=== PATIENT | female | born 1940 | race African-American/Black ===

== ENCOUNTER 2019-02-08 10:22 | Inpatient (IN) | payer MEDICARE, BC ==
[~2019-02-08] VITALS: Ht 172.7 cm; Wt 57.2 kg
[2019-02-08 10:47] LABS: BASOPHILS % 0.7 % (0.0-2.0); EOSINOPHILS % 0.4 % (0.0-5.0); HEMATOCRIT. 39.8 % (36.0-48.0); HEMOGLOBIN. 13.2 g/dL (12.0-16.0); LYMPHOCYTES % 15.9 % (20.0-50.0); MEAN CORPUSCULAR VOLUME 93.4 fL (81.0-99.0); MONOCYTES % 6.6 % (2.0-8.0); NEUTROPHILS % 76.4 % (40.0-76.0); PLATELET 152 x1000/uL (130-400); RED BLOOD CELL COUNT 4.26 mill/uL (4.2-5.4); RED CELL DISTRIBUTION WIDTH 14.2 % (11.6-14.6)
[2019-02-08 10:52] LABS: INR 1.1; PROTHROMBIN TIME 11.3 sec (9.6-11.0)
[2019-02-08 10:54] LABS: CHLORIDE 106 mEq/L (98-107)
[2019-02-08 10:57] LABS: ETHANOL BLOOD < 10 mg/dL
[2019-02-08 11:46] LABS: CLARITY URINE CLEAR (CLEAR); COLOR URINE YELLOW (YELLOW); KETONES URINE NEGATIVE (NEGATIVE); LEUKOCYTE ESTERASE URINE NEGATIVE (NEGATIVE); NITRITE URINE POSITIVE (NEGATIVE); OCCULT BLOOD URINE TRACE (NEGATIVE); PROTEIN URINE NEGATIVE (NEGATIVE); SPECIFIC GRAVITY URINE 1.021 (1.005-1.030)
[2019-02-08] MEDS ORDERED: LEVOFLOXACIN 750MG PREMIX 150 ML IV ONE (12:15)
[2019-02-08 12:56] LABS: *AMPHETAMINES SCREEN URINE NEGATIVE (NEGATIVE); *BARBITURATES SCREEN URINE NEGATIVE (NEGATIVE); *COCAINE SCREEN URINE NEGATIVE (NEGATIVE)
[2019-02-08 12:57] LABS: *BENZODIAZEPINES SCREEN URINE NEGATIVE (NEGATIVE); CANNABINOID URINE SCREEN NEGATIVE (NEGATIVE); METHADONE URINE SCREEN NEGATIVE (NEGATIVE); OPIATES URINE SCREEN NEGATIVE (NEGATIVE); PHENCYCLIDINE URINE SCREEN NEGATIVE (NEGATIVE)
[2019-02-08] MEDS ORDERED: HALOPERIDOL LACTATE 5MG/ML VIAL IM ONE (13:45)
[2019-02-08] MEDS ORDERED: ONDANSETRON HCL 4MG/2ML INJ IV PRN (15:00)
[2019-02-08] MEDS: RISPERIDONE 0.5MG TABLET PO SCH (15:00)
[2019-02-08] MEDS ORDERED: ACETAMINOPHEN 325MG TABLET PO PRN (15:00)
[2019-02-08] MEDS ORDERED: CEFTRIAXONE 1 G PREMIX 50 ML IV SCH (15:00)
[2019-02-08] MEDS: LORAZEPAM 2MG/ML CPJ IM PRN (17:23)
[2019-02-08 20:00] VITALS: BP 156/62
[2019-02-08 22:00] VITALS: BP 156/62
[2019-02-08] MEDS: CEFTRIAXONE 1 G PREMIX 50 ML IV SCH (22:12)
[2019-02-08] MEDS: SODIUM CHLORIDE 0.9% 1,000 ML IV SCH (22:45)
[2019-02-08] MEDS ORDERED: NITR0.4T49 SL (23:41)
[2019-02-08] MEDS ORDERED: AMLO5TAB4 PO (23:41)
[2019-02-08] MEDS ORDERED: LEVO25TA2 PO (23:41)
[2019-02-08] MEDS ORDERED: ASPI-986 PO (23:41)
[2019-02-08] MEDS ORDERED: CLOP75TA4 PO (23:41)
[2019-02-09 00:16] VITALS: BP 148/66
[2019-02-09 04:00] VITALS: BP 146/63
[2019-02-09 06:58] LABS: BASOPHILS % 0.4 % (0.0-2.0); EOSINOPHILS % 0.6 % (0.0-5.0); HEMATOCRIT. 37.7 % (36.0-48.0); HEMOGLOBIN. 12.5 g/dL (12.0-16.0); LYMPHOCYTES % 19.3 % (20.0-50.0); MEAN CORPUSCULAR VOLUME 93.2 fL (81.0-99.0); MEAN PLATELET VOLUME 9.8 fl (7.4-10.4); NEUTROPHILS % 71.7 % (40.0-76.0); PLATELET 135 x1000/uL (130-400); RED BLOOD CELL COUNT 4.05 mill/uL (4.2-5.4); RED CELL DISTRIBUTION WIDTH 13.8 % (11.6-14.6)
[2019-02-09 07:16] LABS: CHLORIDE 105 mEq/L (98-107)
[2019-02-09 08:00] VITALS: BP 157/67
[2019-02-09] MEDS: RISPERIDONE 0.5MG TABLET PO SCH ×2 (08:02→17:09)
[2019-02-09 12:00] VITALS: BP 143/58
[2019-02-09] MEDS: HALOPERIDOL LACTATE 5MG/ML VIAL IM PRN (14:16)
[2019-02-09 16:00] VITALS: BP 144/67
[2019-02-09] MEDS: SODIUM CHLORIDE 0.9% 1,000 ML IV SCH (18:45)
[2019-02-09 20:44] VITALS: BP 137/61
[2019-02-09] MEDS: CEFTRIAXONE 1 G PREMIX 50 ML IV SCH (21:34)
[2019-02-09] MEDS ORDERED: METO-396 PO (21:46)
[2019-02-10 00:05] VITALS: BP 121/64
[2019-02-10 04:00] VITALS: BP 118/64
[2019-02-10 08:00] VITALS: BP 168/66
[2019-02-10] MEDS ORDERED: PNEUMOCOCCAL 23-VAL P-SAC VAC 0.5 ML IM ONE (09:00)
[2019-02-10] MEDS: RISPERIDONE 0.5MG TABLET PO SCH ×2 (09:18→17:00)
[2019-02-10 12:00] VITALS: BP 131/53
[2019-02-10] MEDS: HALOPERIDOL LACTATE 5MG/ML VIAL IM PRN (14:52)
[2019-02-10 16:00] VITALS: BP 151/70
[2019-02-10] MEDS: LORAZEPAM 2MG/ML CPJ IM PRN (16:05)
[2019-02-10 20:00] VITALS: BP 166/70
[2019-02-10] MEDS: CEFTRIAXONE 1 G PREMIX 50 ML IV SCH (21:36)
[2019-02-11] VITALS: BP 162/65
[2019-02-11 04:00] VITALS: BP 155/67
[2019-02-11 08:29] VITALS: BP 150/66
[2019-02-11] MEDS: RISPERIDONE 0.5MG TABLET PO SCH ×2 (08:40→17:44)
[2019-02-11] MEDS: HALOPERIDOL LACTATE 5MG/ML VIAL IM PRN ×2 (12:17→20:04)
[2019-02-11 12:27] VITALS: BP 120/71
[2019-02-11 16:20] VITALS: BP 154/71
[2019-02-11] MEDS: CEFTRIAXONE 1 G PREMIX 50 ML IV SCH (20:05)
[2019-02-11 20:50] VITALS: BP 116/65
[2019-02-12 04:00] VITALS: BP 145/56
[2019-02-12] MEDS: HALOPERIDOL LACTATE 5MG/ML VIAL IM PRN (07:00)
[2019-02-12 08:45] VITALS: BP 179/68
[2019-02-12] MEDS: RISPERIDONE 0.5MG TABLET PO SCH ×2 (09:24→17:33)
[2019-02-12] MEDS: CLONIDINE 0.1MG TABLET PO PRN (09:24)
[2019-02-12 16:18] VITALS: BP 127/65
[2019-02-12 17:01] LABS: BASOPHILS % 0.5 % (0.0-2.0); HEMATOCRIT. 38.1 % (36.0-48.0); HEMOGLOBIN. 12.6 g/dL (12.0-16.0); LYMPHOCYTES % 17.9 % (20.0-50.0); MEAN CORPUSCULAR HEMOGLOBIN 31.2 pg (28.0-32.0); MEAN CORPUSCULAR VOLUME 94.5 fL (81.0-99.0); MEAN PLATELET VOLUME 9.8 fl (7.4-10.4); MONOCYTES % 9.4 % (2.0-8.0); NEUTROPHILS % 71.2 % (40.0-76.0); PLATELET 130 x1000/uL (130-400); RED BLOOD CELL COUNT 4.03 mill/uL (4.2-5.4)
[2019-02-12 17:23] LABS: CHLORIDE 105 mEq/L (98-107)
[2019-02-12 20:00] VITALS: BP 116/55
[2019-02-12] MEDS: CEFTRIAXONE 1 G PREMIX 50 ML IV SCH (20:04)
[2019-02-12] MEDS: LORAZEPAM 2MG/ML CPJ IV PRN (21:08)
[2019-02-13] VITALS: BP 136/68
[2019-02-13 04:00] VITALS: BP 145/65
[2019-02-13 08:00] VITALS: BP 167/68
[2019-02-13] MEDS: RISPERIDONE 0.5MG TABLET PO SCH ×2 (09:26→17:00)
[2019-02-13] MEDS: CLONIDINE 0.1MG TABLET PO PRN (09:27)
[2019-02-13 12:00] VITALS: BP 127/55
[2019-02-13] MEDS: LORAZEPAM 2MG/ML CPJ IV PRN (14:48)
[2019-02-13 16:00] VITALS: BP 114/50
[2019-02-13 20:50] VITALS: BP 146/49
[2019-02-13] MEDS: CEFTRIAXONE 1 G PREMIX 50 ML IV SCH (21:08)
[2019-02-14 00:44] VITALS: BP 165/69
[2019-02-14 04:44] VITALS: BP 134/80
[2019-02-14 08:00] VITALS: BP 146/70
[2019-02-14 08:20] LABS: CHLORIDE 106 mEq/L (98-107)
[2019-02-14] MEDS: RISPERIDONE 0.5MG TABLET PO SCH ×2 (09:50→16:31)
[2019-02-14 10:45] LABS: BASOPHILS % 0.6 % (0.0-2.0); EOSINOPHILS % 0.4 % (0.0-5.0); HEMATOCRIT. 42.3 % (36.0-48.0); LYMPHOCYTES % 15.9 % (20.0-50.0); MEAN CORPUSCULAR HEMOGLOBIN 31.3 pg (28.0-32.0); MEAN CORPUSCULAR VOLUME 94.7 fL (81.0-99.0); MEAN PLATELET VOLUME 9.9 fl (7.4-10.4); NEUTROPHILS % 77.1 % (40.0-76.0); RED BLOOD CELL COUNT 4.47 mill/uL (4.2-5.4); RED CELL DISTRIBUTION WIDTH 14.3 % (11.6-14.6)
[2019-02-14 11:01] LABS: PLATELET 128 x1000/uL (130-400)
[2019-02-14 12:00] VITALS: BP 134/69
[2019-02-14 16:00] VITALS: BP 129/54
[2019-02-14] MEDS ORDERED: PNEUMOCOCCAL 23-VAL P-SAC VAC 0.5 ML IM ONE (16:00)
[2019-02-14] MEDS ORDERED: INFLUENZA VIRUS VACCINE(AFLURIA) 0.5ML SYR IM ONE (17:45)
[2019-02-14] MEDS: HALOPERIDOL LACTATE 5MG/ML VIAL IM PRN (18:24)
[2019-02-14] MEDS: LORAZEPAM 2MG/ML CPJ IV PRN (19:22)
[2019-02-14 20:00] VITALS: BP 133/62
[2019-02-14] MEDS: CEFTRIAXONE 1 G PREMIX 50 ML IV SCH (20:42)
[2019-02-15] VITALS: BP 141/69
[2019-02-15] MEDS: LORAZEPAM 2MG/ML CPJ IV PRN ×3 (01:48→23:16)
[2019-02-15] MEDS: CLONIDINE 0.1MG TABLET PO PRN ×2 (03:42→11:29)
[2019-02-15 03:56] VITALS: BP 165/76
[2019-02-15 08:00] VITALS: BP 165/66
[2019-02-15] MEDS: RISPERIDONE 0.5MG TABLET PO SCH (08:54)
[2019-02-15 12:00] VITALS: BP 163/58
[2019-02-15 16:00] VITALS: BP 134/56
[2019-02-15] MEDS: RISPERIDONE 1MG TABLET PO SCH (17:07)
[2019-02-15 20:00] VITALS: BP 153/55
[2019-02-15] MEDS: CEFTRIAXONE 1 G PREMIX 50 ML IV SCH (20:52)
[2019-02-16 00:26] VITALS: BP 167/63
[2019-02-16 04:00] VITALS: BP 141/66
[2019-02-16 08:00] VITALS: BP 169/82
[2019-02-16] MEDS: RISPERIDONE 1MG TABLET PO SCH ×2 (08:48→17:26)
[2019-02-16] MEDS: CLONIDINE 0.1MG TABLET PO PRN (08:49)
[2019-02-16] MEDS ORDERED: DOCUSATE SODIUM 250MG CAPSULE PO SCH (10:45)
[2019-02-16 12:32] VITALS: BP 128/68
[2019-02-16 14:47] VITALS: BP 128/68
[2019-02-16 16:00] VITALS: BP 120/75
[2019-02-16] MEDS ORDERED: AMLODIPINE 5MG TABLET PO SCH (21:00)
== END 2019-02-16 17:55 | DRG 689 ==
LOC: ER 11:09 → 6WST 12:58 → ENRESERV 16:34
PROVIDERS: ADMIT Internal Medicine Nephrology; ATTEND Internal Medicine Nephrology
DX: N39.0 Urinary tract infection, site not specified (principal); G93.41 Metabolic encephalopathy; E44.1 Mild protein-calorie malnutrition; Z68.1 Body mass index [BMI] 19.9 or less, adult; F03.90 Unspecified dementia, unspecified severity, without behavioral disturbance, psychotic disturbance, mood disturbance, and anxiety; I10 Essential (primary) hypertension; I25.10 Atherosclerotic heart disease of native coronary artery without angina pectoris; I48.91 Unspecified atrial fibrillation; N83.8 Other noninflammatory disorders of ovary, fallopian tube and broad ligament; I25.2 Old myocardial infarction; Z88.8 Allergy status to other drugs, medicaments and biological substances; Z79.899 Other long term (current) drug therapy; Z79.82 Long term (current) use of aspirin
CPT/HCPCS: 36415; 71045; 74176; 80048; 80305; 80320; 81003; 83735; 84100; 84484; 86304; 90732; 93005; 93970; 97162; 99285; C1893; J0696; J1630; J1956; J2060; J7030; J7040; G0480

== ENCOUNTER 2019-02-16 23:36 | Emergency (ER) | payer MEDICARE, BC ==
[~2019-02-16] VITALS: Ht 167.6 cm; Wt 50.0 kg
[~2019-02-16 23:36] MED LIST: AMLO5TAB4 PO; ASPI-986 PO; CLOP75TA4 PO; LEVO25TA2 PO; METO-396 PO; NITR0.4T49 SL
[2019-02-17] MEDS ORDERED: TETANUS, DIPHTHERIA, PERTUSSIS VAC/PF 0.5ML (>7YR OLD) IM ONE
[2019-02-17 00:14] LABS: BASOPHILS % 0.3 % (0.0-2.0); EOSINOPHILS % 0.4 % (0.0-5.0); HEMOGLOBIN. 14.3 g/dL (12.0-16.0); LYMPHOCYTES % 17.6 % (20.0-50.0); MEAN CORPUSCULAR VOLUME 93.5 fL (81.0-99.0); MEAN PLATELET VOLUME 9.1 fl (7.4-10.4); MONOCYTES % 8.2 % (2.0-8.0); NEUTROPHILS % 73.5 % (40.0-76.0); PLATELET 141 x1000/uL (130-400)
[2019-02-17 00:20] LABS: CHLORIDE 101 mEq/L (98-107)
[2019-02-17 10:15] VITALS: BP 150/55
== END 2019-02-17 10:15 ==
LOC: ER 23:36
DX: S01.81XA Laceration without foreign body of other part of head, initial encounter (principal); W18.39XA Other fall on same level, initial encounter; Y93.89 Activity, other specified; Y92.89 Other specified places as the place of occurrence of the external cause; Y99.8 Other external cause status; I48.91 Unspecified atrial fibrillation; I10 Essential (primary) hypertension; I25.2 Old myocardial infarction; F03.90 Unspecified dementia, unspecified severity, without behavioral disturbance, psychotic disturbance, mood disturbance, and anxiety; Z79.82 Long term (current) use of aspirin; Z79.899 Other long term (current) drug therapy; Z88.0 Allergy status to penicillin; Z88.6 Allergy status to analgesic agent
CPT/HCPCS: 12011; 36415; 70486; 71045; 72170; 90471; 90715; 99284

== ENCOUNTER 2019-12-20 09:29 | Inpatient (IN) | payer MEDICARE, BC ==
[~2019-12-20] VITALS: Ht 175.3 cm; Wt 58.7 kg
[2019-12-20 11:22] LABS: BASOPHILS % 0.5 % (0.0-2.0); EOSINOPHILS % 0.7 % (0.0-5.0); HEMATOCRIT. 38.6 % (36.0-48.0); HEMOGLOBIN. 12.8 g/dL (12.0-16.0); LYMPHOCYTES % 18.5 % (20.0-50.0); MEAN CORPUSCULAR HEMOGLOBIN 31.1 pg (28.0-32.0); MEAN PLATELET VOLUME 8.7 fl (7.4-10.4); MONOCYTES % 6.6 % (2.0-8.0); NEUTROPHILS % 73.7 % (40.0-76.0); PLATELET 200 x1000/uL (130-400); RED BLOOD CELL COUNT 4.11 mill/uL (4.2-5.4); RED CELL DISTRIBUTION WIDTH 12.8 % (11.6-14.6)
[2019-12-20 11:30] LABS: CHLORIDE 104 mEq/L (98-107)
[2019-12-20 11:31] LABS: INR 1.1; PROTHROMBIN TIME 11.3 sec (9.6-11.0)
[2019-12-20] MEDS ORDERED: ATROPINE SULFATE 1MG/10ML SYR IV ONE (11:45)
[2019-12-20] MEDS ORDERED: LEVOFLOXACIN 750MG PREMIX 150 ML IV ONE (12:15)
[2019-12-20 12:16] LABS: CLARITY URINE CLEAR (CLEAR); COLOR URINE YELLOW (YELLOW); KETONES URINE NEGATIVE (NEGATIVE); LEUKOCYTE ESTERASE URINE TRACE (NEGATIVE); NITRITE URINE NEGATIVE (NEGATIVE); OCCULT BLOOD URINE NEGATIVE (NEGATIVE); PH URINE 7.5 (4.5-8.0); PROTEIN URINE NEGATIVE (NEGATIVE); SPECIFIC GRAVITY URINE 1.015 (1.005-1.030)
[2019-12-20] MEDS ORDERED: ONDANSETRON HCL 4MG/2ML INJ IV PRN (14:15)
[2019-12-20 17:05] VITALS: BP 135/72
[2019-12-20 20:00] VITALS: BP 166/74
[2019-12-20] MEDS: ENOXAPARIN 40MG/0.4ML SYR SUBCUT SCH (21:47)
[2019-12-21] VITALS: BP 130/59
[2019-12-21 04:00] VITALS: BP 125/54
[2019-12-21 08:00] VITALS: BP 108/64
[2019-12-21] MEDS ORDERED: NITROGLYCERIN 0.4MG TABLET SL SL PRN (10:15)
[2019-12-21] MEDS ORDERED: MEDICATION NOT ON FORMULARY EA (Metoprolol Succinate 25 MG) PO SCH (10:15)
[2019-12-21] MEDS ORDERED: METOPROLOL TARTRATE 25MG TABLET PO SCH (10:30)
[2019-12-21] MEDS: LEVOTHYROXINE SODIUM 25MCG TABLET PO SCH (10:50)
[2019-12-21] MEDS: CLOPIDOGREL 75MG TABLET PO SCH (10:50)
[2019-12-21 10:51] VITALS: BP 142/65
[2019-12-21] MEDS: AMLODIPINE 5MG TABLET PO SCH (10:55)
[2019-12-21 12:08] VITALS: BP 142/65
[2019-12-21 17:28] LABS: BASOPHILS % 0.3 % (0.0-2.0); EOSINOPHILS % 0.6 % (0.0-5.0); HEMATOCRIT. 40.7 % (36.0-48.0); HEMOGLOBIN. 13.5 g/dL (12.0-16.0); LYMPHOCYTES % 9.9 % (20.0-50.0); MEAN CORPUSCULAR HEMOGLOBIN 31.3 pg (28.0-32.0); MEAN CORPUSCULAR VOLUME 94.3 fL (81.0-99.0); MEAN PLATELET VOLUME 9.1 fl (7.4-10.4); NEUTROPHILS % 84.2 % (40.0-76.0); PLATELET 225 x1000/uL (130-400); RED BLOOD CELL COUNT 4.31 mill/uL (4.2-5.4)
[2019-12-21 17:41] LABS: CHLORIDE 102 mEq/L (98-107)
[2019-12-21 17:47] LABS: LDL CHOLESTEROL 122 mg/dL (5-100)
[2019-12-21 17:49] LABS: HDL CHOLESTEROL 35 mg/dL (40-59)
[2019-12-21 20:00] VITALS: BP 124/70
[2019-12-21] MEDS: ENOXAPARIN 40MG/0.4ML SYR SUBCUT SCH (21:17)
[2019-12-22] VITALS: BP 119/80
[2019-12-22 04:00] VITALS: BP 120/62
[2019-12-22] MEDS: ACETAMINOPHEN 325MG TABLET PO PRN (04:53)
[2019-12-22] MEDS: LEVOTHYROXINE SODIUM 25MCG TABLET PO SCH (06:19)
[2019-12-22 06:54] LABS: BASOPHILS % 0.5 % (0.0-2.0); EOSINOPHILS % 1.2 % (0.0-5.0); HEMATOCRIT. 37.7 % (36.0-48.0); HEMOGLOBIN. 12.3 g/dL (12.0-16.0); LYMPHOCYTES % 20.2 % (20.0-50.0); MEAN CORPUSCULAR HEMOGLOBIN 30.5 pg (28.0-32.0); MEAN CORPUSCULAR VOLUME 93.9 fL (81.0-99.0); MEAN PLATELET VOLUME 9.3 fl (7.4-10.4); MONOCYTES % 8.8 % (2.0-8.0); NEUTROPHILS % 69.3 % (40.0-76.0); PLATELET 185 x1000/uL (130-400); RED BLOOD CELL COUNT 4.02 mill/uL (4.2-5.4); RED CELL DISTRIBUTION WIDTH 13.2 % (11.6-14.6)
[2019-12-22 07:19] LABS: CHLORIDE 104 mEq/L (98-107)
[2019-12-22 08:00] VITALS: BP 154/79
[2019-12-22] MEDS: ASPIRIN 325MG TABLET PO SCH (09:11)
[2019-12-22] MEDS: AMLODIPINE 5MG TABLET PO SCH (09:12)
[2019-12-22] MEDS: CLOPIDOGREL 75MG TABLET PO SCH (09:12)
[2019-12-22] MEDS ORDERED: MORPHINE SULFATE 2 MG/ML CPJ (NOT FOR IM USE) IV PRN (10:00)
[2019-12-22 12:00] VITALS: BP 129/51
[2019-12-22 16:00] VITALS: BP 142/75
[2019-12-22] MEDS ORDERED: HYDROCODONE/APAP 7.5/325MG 1 TAB TABLET PO PRN (17:15)
[2019-12-22 20:00] VITALS: BP 113/61
[2019-12-22] MEDS: ENOXAPARIN 40MG/0.4ML SYR SUBCUT SCH (22:59)
[2019-12-23 00:46] VITALS: BP 124/50
[2019-12-23] MEDS: ACETAMINOPHEN 325MG TABLET PO PRN (05:06)
[2019-12-23 05:28] VITALS: BP 130/65
[2019-12-23 06:31] LABS: CHLORIDE 104 mEq/L (98-107)
[2019-12-23 06:39] LABS: BASOPHILS % 0.5 % (0.0-2.0); EOSINOPHILS % 1.1 % (0.0-5.0); HEMATOCRIT. 39.7 % (36.0-48.0); LYMPHOCYTES % 21.7 % (20.0-50.0); MEAN CORPUSCULAR HEMOGLOBIN 30.4 pg (28.0-32.0); MEAN PLATELET VOLUME 9.5 fl (7.4-10.4); MONOCYTES % 7.4 % (2.0-8.0); NEUTROPHILS % 69.3 % (40.0-76.0); PLATELET 224 x1000/uL (130-400); RED BLOOD CELL COUNT 4.27 mill/uL (4.2-5.4)
[2019-12-23] MEDS ORDERED: LEVOTHYROXINE SODIUM 75MCG TABLET PO SCH (07:10)
[2019-12-23 08:00] VITALS: BP 152/70
[2019-12-23] MEDS: ASPIRIN 325MG TABLET PO SCH (08:44)
[2019-12-23] MEDS: CLOPIDOGREL 75MG TABLET PO SCH (08:44)
[2019-12-23] MEDS: AMLODIPINE 5MG TABLET PO SCH (08:44)
[2019-12-23 12:00] VITALS: BP 101/82
[2019-12-23 15:07] VITALS: BP 101/82
[2019-12-23 16:00] VITALS: BP 114/63
== END 2019-12-23 17:35 | disposition home or self-care (01) | DRG 755 ==
LOC: ER 09:29 → 8WST 11:51 → ENRESERV 12:07 → 8WST 14:05
PROVIDERS: ADMIT Internal Medicine Nephrology; ATTEND Internal Medicine Nephrology
DX: C56.9 Malignant neoplasm of unspecified ovary (principal); G93.40 Encephalopathy, unspecified; E03.9 Hypothyroidism, unspecified; F02.80 Dementia in other diseases classified elsewhere, unspecified severity, without behavioral disturbance, psychotic disturbance, mood disturbance, and anxiety; G30.9 Alzheimer's disease, unspecified; I10 Essential (primary) hypertension; I25.10 Atherosclerotic heart disease of native coronary artery without angina pectoris; I25.2 Old myocardial infarction; E78.5 Hyperlipidemia, unspecified; I48.91 Unspecified atrial fibrillation; I49.1 Atrial premature depolarization; K76.89 Other specified diseases of liver; Z53.9 Procedure and treatment not carried out, unspecified reason; Z79.890 Hormone replacement therapy; Z82.3 Family history of stroke; Z87.891 Personal history of nicotine dependence; Z95.1 Presence of aortocoronary bypass graft; Z95.5 Presence of coronary angioplasty implant and graft; Z88.0 Allergy status to penicillin; Z88.5 Allergy status to narcotic agent; Z79.899 Other long term (current) drug therapy
CPT/HCPCS: 36415; 74176; 80048; 80053; 80061; 81003; 83735; 84443; 85025; 93005; 93306; 97162; 99291; J0461; J1650; J2405